=== PATIENT | male | born 1975 | race Caucasian/White ===

== ENCOUNTER 2019-04-19 06:26 | Emergency (ER) | payer OTHER ==
[~2019-04-19] VITALS: Ht 180.3 cm; Wt 118.2 kg
[2019-04-19 06:31] VITALS: Ht 180.3 cm; Wt 118.2 kg
[2019-04-19] MEDS ORDERED: ADVIL200 MG PO (06:34)
[2019-04-19] MEDS ORDERED: DICLOFENAC SODI50 MG PO (06:58)
[2019-04-19 07:42] VITALS: BP 137/92
== END 2019-04-19 07:35 | disposition home or self-care (01) ==
LOC: D.ER 06:26 → EDBD 06:26 → D.ER 07:35
DX: M54.5 Low back pain (principal)

== ENCOUNTER 2019-04-28 08:15 | Day surgery (SDC) | payer OTHER ==
[~2019-04-28] VITALS: Ht 180.3 cm; Wt 117.9 kg
--- NOTE | ~2019-04-28 | OP ---
PATIENT NAME: ALEXEY KRAMER MEDICAL RECORD: [id number] :79 LOCATION:[facility] ADMISSION DATE: SURGEON: LYRIC DÍAZ MD DATE OF OPERATION: 04/28/2019 PREOPERATIVE DIAGNOSES: Disc herniation and lumbar spinal stenosis at L2-L3 on the left with foraminal stenosis. POSTOPERATIVE DIAGNOSES: Disc herniation and lumbar spinal stenosis at L2-L3 on the left with foraminal stenosis. PROCEDURES: Lumbar laminotomy, medial facetectomy and foraminotomy with METRx retractor and discectomy on the left at L2-L3. SURGEON: Lyric Díaz MD DESCRIPTION AND TECHNIQUE: After induction of general endotracheal anesthesia, the patient was rolled prone on a Davin frame. Lumbar spine was prepped and draped in usual sterile fashion. Fluoroscopic x-ray and spinal needle localized the L2-L3 interspace on the left side. A series of dilators was used to advance a METRx retractor at the L2-L3 interspace on the left side. The level was confirmed with fluoroscopic x-ray. A microscope and Midas Dawson drill were used to perform laminotomy, medial facetectomy, and foraminotomy at L2-L3 on the left. Hypertrophied ligamentum flavum was removed with Cloward rongeurs. Following this, the L2 and L3 nerve roots were identified. There was an obvious free fragment disc herniation within the spinal canal within the axilla of the 2 nerve root. This was removed in a piecemeal fashion with pituitary rongeurs. Additional disc material was removed from the disc space. Following this, the L2 and L3 nerve roots were decompressed well. Meticulous hemostasis was maintained throughout the wound. The wound was irrigated with copious amounts of Ancef irrigant solution. The fascia was closed with 2-0 Vicryl suture, the subdermal layer was closed with 3-0 Vicryl suture. The skin was reapproximated with piedad. A sterile dressing was applied to the wound. The patient was awakened in good condition, taken to recovery. All counts were reported as correct. Estimated blood loss was minimal. TRANSINT:[id number] Voice Confirmation ID: [id number] DOCUMENT ID: [id number] LYRIC DÍAZ MD CC: [id number] DICTATION DATE: 05/02/19 0948 GANTRY RIGGER: 05/02/19 1050 [facility] 04/28/[address] [facility] [address] [place] [address]
[~2019-04-28 08:15] MED LIST: ADVIL200 MG PO; BACLOFEN20 M1 PO; DICLOFENAC SODI50 MG PO; HYDROCODON-ACE1 EA10 PO; LISINOPRIL20 MG PO; NEURONTIN 300300 MG PO; ZANAFLEX2 M1 PO
[2019-04-28 08:45] LABS: HEMATOCRIT 46.3 % (42.0-54.0); HEMOGLOBIN 16.3 g/dL (13.5-17.5); MCH 32.7 pg (26.0-34.0); MCHC 35.2 g/dL (31.0-37.0); MEAN PLATELET VOLUME 9.4 fL (7.4-10.4); RBC 4.98 10x6/uL (4.20-6.10); RDW 13.5 % (11.5-14.5); WBC 15.5 10x3/uL (4.8-10.8)
[2019-04-28 09:56] VITALS: BP 141/87; Ht 180.3 cm; Wt 117.9 kg
--- NOTE | 2019-04-28 17:13 | NUR ---
NOEL FRAME USED FOR POSITIONING
== END 2019-04-28 19:50 | disposition home or self-care (01) ==
LOC: D.PAN 08:15 → D.OPS 11:45 → D.PAN 19:50
PROVIDERS: Anesthesiology; ATTEND Neurological Surgery
DX: M51.26 Other intervertebral disc displacement, lumbar region (principal); M48.061 Spinal stenosis, lumbar region without neurogenic claudication

== ENCOUNTER 2019-05-26 07:22 | Day surgery (SDC) | payer OTHER ==
[2019-05-25 08:23] LABS: HEMOGLOBIN 13.2 g/dL (13.5-17.5); MCH 32.1 pg (26.0-34.0); MCHC 34.7 g/dL (31.0-37.0); MCV 92.5 fL (80.0-100.0); MEAN PLATELET VOLUME 8.7 fL (7.4-10.4); RBC 4.11 10x6/uL (4.20-6.10); RDW 13.1 % (11.5-14.5); WBC 7.2 10x3/uL (4.8-10.8)
[~2019-05-26] VITALS: Ht 180.3 cm; Wt 123.6 kg
[~2019-05-26 07:22] MED LIST changes: +CELEXA10 MG PO
[2019-05-26 07:54] VITALS: BP 126/81; BMI 35.2
[2019-05-26] MEDS ORDERED: PERCOCET 10-321 EAC1 PO (10:47)
--- NOTE | 2019-05-26 11:01 | NUR ---
LACK OF STRENGHT IN LEFT LOWER LEG
--- NOTE | 2019-05-26 14:01 | OP ---
PATIENT NAME: ALEXEY KRAMER MEDICAL RECORD: [id number] :79 LOCATION:D.OPS ADMISSION DATE: SURGEON: LYRIC DÍAZ MD DATE OF OPERATION: 05/26/2019 DATE OF SERVICE: 05/26/2019 PREOPERATIVE DIAGNOSIS: Recurrent disc herniation L2-L3, left. POSTOPERATIVE DIAGNOSIS: Recurrent disc herniation L2-L3, left. PROCEDURE: Redo lumbar laminotomy, medial facetectomy and foraminotomy with discectomy L2-L3, left. SURGEON: Lyric Díaz MD DESCRIPTION AND TECHNIQUE: After induction of general endotracheal anesthesia, the patient was rolled prone on a Davin frame. Lumbar spine was prepped and draped in usual sterile fashion. After sterile prep and drape, the previous incision was incised with a #11 blade. A series of dilators was used to advance a METRx retractor to the L2-L3 interspace on the left side. Level was confirmed with fluoroscopic x-ray. Microscope was brought into the field. Under microscopic illumination, the previous laminotomy was identified and extended with the Midas-Dawson drill. Hypertrophied ligamentum flavum was removed superior and caudal to the previous dural exposure. The disc space was identified. The spinal canal was swept with a Mill[place]ore elevator. Upon accomplishing this, there appeared to be recurrent disc herniation, which was ventral to the thecal sac. This was removed by grasping the lateral edge of the recurrent disc herniation with a patellar pituitary rongeurs. This was gently retracted laterally. It was a large disc herniation, approximately a centimeter and a half long, 0.5 cm in diameter. Upon removing this, there was brisk egress of CSF from the ventral dura. There was a single nerve root, which protruded from that to the lateral edge. This nerve root was carefully placed in the ventral dura and under microscope illumination the Duragen patch was placed over the area. There were no additional disc fragments from within the canal. There was no CSF leak upon conclusion of the procedure. Meticulous hemostasis was maintained within the wound. Wound was irrigated with copious amounts of Ancef irrigant solution. The retractor was removed. The fascia was closed with 2-0 Vicryl suture. Subdermal layer was closed with 3-0 Vicryl suture. The skin was closed with piedad. A sterile dressing was applied to the wound. The patient was awakened in good condition, taken to recovery. All counts were reported as correct. Estimated blood loss was minimal. TRANSINT:[id number] Voice Confirmation ID: [id number] DOCUMENT ID: [id number] LYRIC DÍAZ MD at 1401 CC: [id number] DICTATION DATE: 05/26/19 1311 OPTICS ENGINEER: 05/26/19 1334 [id number] [place] [address]
[2019-05-26 15:25] VITALS: BP 144/72
--- NOTE | 2019-05-26 15:25 | NUR ---
REC'D TO ROOM 2233 AWAKE AND ALERT. RESP EVEN AND UNLABORED WITH NO DISTRESS NOTED. CAN EXPRESS NEEDS AND WANTS. C/O LEG PAIN RATING 9/10 ON PAIN SCALE WAS MEDICATED WITH DIL BEFORE LEAVING RECOVERY NEXT PAIN MEDICATION DUE AT 1700. DRESSING INTACT TO MIDDLE/LOWER BACK. AND C/L IN REACH AT BEDSIDE.
--- NOTE | 2019-05-26 16:44 | NUR ---
1400 DR DÍAZ AT BEDSIDE. TO ADMIT PT FOR OBSERVATION AND RX WITH MS AND NEURONTIN WHEN C/O PAIN. SLEEPING ON RIGHT SIDE
[2019-05-26 17:40] VITALS: BP 144/72; Ht 180.3 cm; Wt 123.6 kg
[2019-05-26 19:55] VITALS: BP 113/68
--- NOTE | 2019-05-26 21:10 | NUR ---
LYING QUEITLY WITH NO DISTRESS NOTED. RESP UNLABORED. DRESSING TO LUMBAR BACK INTACT WITHOUT DRAINAGE NOTED. CL IN REACH AT BEDSIDE.
[2019-05-27] VITALS: BP 119/58
--- NOTE | 2019-05-27 02:02 | NUR ---
I have reviewed this patient and I concur with the Shift Assessment completed by the Licensed Practical Nurse today this shift.
[2019-05-27 04:00] VITALS: BP 116/60
--- NOTE | 2019-05-27 07:40 | NUR ---
ALERT AND ORIENTED. C/O PAIN, GAVE MORPHINE FOR PAIN. NO S/S OF ACUTE DISTRESS NOTED. POD #1 LAMINECTOMY, DRESSING C/D/I. PT ON BEDREST, NOT COMPLYING. PT FREQUENTLY SITS UP ON THE SIDE OF THE BED. IV TO LEFT HAND, SL. SITE PATENT WITHOUT REDNESS OR SWELLING. PT DENIES ANY NEEDS. AT BEDSIDE. CALL LIGHT IN REACH. WILL CONTINUE TO MONITOR.
[2019-05-27 08:30] VITALS: BP 107/63
[2019-05-27 12:47] VITALS: BP 118/69
--- NOTE | 2019-05-27 13:02 | NUR ---
I have reviewed this patient and I concur with the Shift Assessment completed by the Licensed Practical Nurse today this shift.
[2019-05-27 16:51] VITALS: BP 118/20
[2019-05-27 20:00] VITALS: BP 111/63
[2019-05-28] VITALS: BP 114/68
--- NOTE | 2019-05-28 01:27 | NUR ---
ALERT RESTING IN BED, REQUESTING PEROCET FOR PAIN, STATES I HAVE BEEN ALTERNATING PEROCET AND MORPHINE. DRESSING TO LOWER BACK REPLACED DUE TO ROLLED UP ABDIFATAH INTACT NO DRAINAGE NOTED, DENIES HEADACHE, SEE SHIFT ASSESSMENT, CALL LIGHT IN REACH
[2019-05-28 04:00] VITALS: BP 127/70
--- NOTE | 2019-05-28 07:30 | NUR ---
ALERT AND ORIENTED. AT BEDSIDE. NO C/O PAIN. NO S/S OF ACUTE DISTRESS NOTED. IV TO LEFT HAND, SL. SITE PATENT WITHOUT REDNESS OR SWELLING. POD #2 LAMINECTOMY, DRESSING C/D/I. LEFT FOOT DROP. UP WITH WALKER. PT DENIES ANY NEEDS. CALL LIGHT IN REACH. WILL CONTINUE TO MONITOR.
[2019-05-28 09:35] VITALS: BP 136/82
--- NOTE | 2019-05-28 11:46 | NUR ---
PT IV INFILTRATED, DISCONTINUED IV CATHETER TIP INTACT. RESITED IV TO RIGHT WRIST, 22 GA X1 TRY. IV SL.
--- NOTE | 2019-05-28 12:36 | NUR ---
I have reviewed this patient and I concur with the Shift Assessment completed by the Licensed Practical Nurse today this shift.
[2019-05-28 13:16] VITALS: BP 155/92
[2019-05-28 17:16] VITALS: BP 128/91
--- NOTE | 2019-05-28 18:27 | NUR ---
ALERT AND ORIENTED, SITTING UP ON THE SIDE OF THE BED. C/O PAIN, GAVE MORPHINE FOR PAIN. NO S/S OF ACUTE DISTRESS NOTED. CALL LIGHT IN REACH. WILL CONTINUE TO MONITOR.
[2019-05-28 20:00] VITALS: BP 129/60
--- NOTE | 2019-05-28 20:00 | NUR ---
ALERT RESTING IN BED, REQUESTING MORPHINE FOR PAIN RATED 7, GIVEN ORDERED, REQESTING TIMES THAT HE CAN HAVE MORPHINE AND PEROCET BE WRITTEN ON BOARD SO HE AND CAN KEEP UP WITH WHEN HE CAN HAVE IT, DONE REQUESTED. SEE SHIFT ASSESSMENT CALL LIGHT IN REACH
[2019-05-29] VITALS: BP 119/74
[2019-05-29 04:00] VITALS: BP 132/78
--- NOTE | 2019-05-29 07:50 | NUR ---
ALERT AND ORIENTED, WATCHING TELEVISION. POD #3 LAMINECTOMY, DRESSING C/D/I. LEFT FOOT DROP. UP WITH WALKER. IV TO RIGHT WRIST, SL. SITE PATENT WITHOUT REDNESS OR SWELLING. C/O PAIN, GAVE MORPHINE. NO S/S OF ACUTE DISTRESS NOTED. PT DENIES ANY NEEDS. CALL LIGHT IN REACH. WILL CONTINUE TO MONITOR.
[2019-05-29 08:07] VITALS: BP 139/81
[2019-05-29 14:01] VITALS: BP 137/73
--- NOTE | 2019-05-29 16:45 | NUR ---
I have reviewed this patient and I concur with the Shift Assessment completed by the Licensed Practical Nurse today this shift.
[2019-05-29 17:28] VITALS: BP 119/77
[2019-05-29 20:00] VITALS: BP 134/83
[2019-05-30] VITALS: BP 138/81
[2019-05-30 04:00] VITALS: BP 118/80
[2019-05-30] MEDS ORDERED: NEURONTIN800 MG PO (05:47)
[2019-05-30] MEDS ORDERED: PERCOCET 10-321 EAC1 PO ×2 (05:52→16:41)
[2019-05-30] MEDS ORDERED: COLACE100 MG PO (05:52)
[2019-05-30] MEDS ORDERED: Ambien PO (05:52)
[2019-05-30] MEDS ORDERED: Chloraseptic Spray [ TOPICAL (05:52)
[2019-05-30] MEDS ORDERED: NEURONTIN 400400 MG PO (05:52)
--- NOTE | 2019-05-30 07:37 | NUR ---
PT IS RESTING IN BED WITH EYES OPEN. RESPIRATIONS ARE EVEN AND UNLABORED. PT IS AT BEDSIDE. PT REPORTS SLIGHT PAIN TO LEFT CALF AND PAIN WITH AMBULATION. WALKER IS IN ROOM WITHIN PT REACH. LEFT FOOT DROP NOTED. PT IS UNABLE TO MOVE LEFT FOOT. LEFT FOOT IS COLD. PT REPORTS THAT HIS FEET ARE ALWAYS COLD. PEDAL PULSES ARE PALP. CAP REFILL <3 SEC. PT DENIES NEEDS. PT DENIES PRESENCE OF N/V. PT DENIES FUTHER NEEDS. BED IS IN THE LOWEST POSITION. CALL LIGHT AND BEDSIDE TABLE ARE WITHIN REACH. SIDE RAILS X 2. WILL CONT TO MONITOR.
[2019-05-30 08:34] VITALS: BP 136/92
[2019-05-30 13:48] VITALS: BP 116/78
--- NOTE | 2019-05-30 16:02 | NUR ---
PT REQUESTING WRITTEN RX WITH DR DÍAZ SIGNAUTRE FOR CANE AND SHOWER CHAIR. MESSAGE LEFT WITH AJ AT DR DÍAZ OFFICE.
--- NOTE | 2019-05-30 17:00 | NUR ---
PT WITH FOOT DROP BOOT ON. DISCAHRGE INSTRUCTIONS COVERED WITH PT AND PT . ALL QUESTIONS ANSWERED. PRINTED RX GIVEN TO PT. DISCHARGE PAPERS GIVEN TO PT. PIV REMOVED FROM RIGHT HAND WITH CATHETER TIP INTACT. DRESSING APPLIED. ALL DISCHARGE PAPERS SIGNED. PT AND PT DENY FURTHER QUESTIONS/CONCERNS AT THIS TIME.
[2019-05-30 17:18] VITALS: BP 165/94
--- NOTE | 2019-05-30 17:23 | NUR ---
PT TRANSPORTED OUT OF ROOM VIA WHEELCHAIR.
== END 2019-05-30 17:32 | disposition home or self-care (01) ==
LOC: D.OPS 07:22 → D.MS 07:22 → D.OPS 09:30 → D.PAN 09:30 → D.MS 15:11 → D.OPS 05-30 17:32
PROVIDERS: Anesthesiology; ATTEND Neurological Surgery
DX: M51.26 Other intervertebral disc displacement, lumbar region (principal)

== ENCOUNTER 2020-03-06 10:28 | Inpatient (IN) | payer OTHER ==
[~2020-03-06] VITALS: Ht 180.3 cm; Wt 121.0 kg
[~2020-03-06 10:28] MED LIST changes: +Ambien PO; +COLACE100 MG PO; +Chloraseptic Spray [ TOPICAL; +NEURONTIN 400400 MG PO; +NEURONTIN800 MG PO; +PERCOCET 10-321 EAC1 PO
[2020-03-06 12:05] LABS: BASOPHILS 0.4 % (0-2); EOSINOPHILS 1.3 % (0-7); HEMATOCRIT 45.3 % (42.0-54.0); HEMOGLOBIN 15.5 g/dL (13.5-17.5); IMMATURE GRANULOCYTES 0.2 % (0-5); LYMPHOCYTES 17.2 % (15-50); MCH 31.7 pg (26.0-34.0); MCHC 34.2 g/dL (31.0-37.0); MCV 92.6 fL (80.0-100.0); MEAN PLATELET VOLUME 9.5 fL (7.4-10.4); MONOCYTES 6.6 % (2-11); NEUTROPHILS 74.3 % (40-80); RBC 4.89 10x6/uL (4.20-6.10); RDW 12.9 % (11.5-14.5); WBC 9.5 10x3/uL (4.8-10.8)
[2020-03-06 12:13] LABS: CALCIUM 9.1 mg/dL (8.5-10.1); CARBON DIOXIDE 30.9 mmol/L (21.0-32.0); CREATININE - SERUM 1.2 mg/dL (0.6-1.3); POTASSIUM - SERUM 3.9 mmol/L (3.5-5.1)
[2020-03-06 12:14] VITALS: BP 146/88
[2020-03-06 12:15] LABS: PLATELET COUNT 198 10x3/uL (130-400)
[2020-03-06 12:19] LABS: ALBUMIN 3.8 g/dL (3.4-5.0); BILIRUBIN - TOTAL 0.78 mg/dL (0.2-1.3); PROTEIN - SERUM 6.8 g/dL (6.4-8.2)
[2020-03-06 16:45] VITALS: BP 135/89
--- NOTE | 2020-03-06 18:51 | NUR ---
RESTING IN BED WITH EYES OPEN. NO C/O PAIN. NO S/S OF ACUTE DISTRESS NOTED. DENIES ANY NEEDS AT THIS TIME. CALL LIGHT IN REACH. WILL CONTINUE TO MONITOR.
[2020-03-06 18:53] VITALS: BMI 37.0
[2020-03-06 20:57] VITALS: BP 143/79
[2020-03-07 01:00] VITALS: BP 128/77
[2020-03-07 06:17] LABS: BASOPHILS 0.4 % (0-2); EOSINOPHILS 1.5 % (0-7); HEMATOCRIT 45.9 % (42.0-54.0); HEMOGLOBIN 15.1 g/dL (13.5-17.5); IMMATURE GRANULOCYTES 0.2 % (0-5); LYMPHOCYTES 19.9 % (15-50); MCH 31.2 pg (26.0-34.0); MCHC 32.9 g/dL (31.0-37.0); MEAN PLATELET VOLUME 9.7 fL (7.4-10.4); MONOCYTES 6.2 % (2-11); NEUTROPHILS 71.8 % (40-80); PLATELET COUNT 214 10x3/uL (130-400); RBC 4.84 10x6/uL (4.20-6.10); RDW 13.1 % (11.5-14.5); WBC 10.8 10x3/uL (4.8-10.8)
[2020-03-07 06:23] LABS: MCV 94.8 fL (80.0-100.0)
[2020-03-07 06:30] VITALS: BP 127/73
[2020-03-07 06:40] LABS: ALBUMIN 3.3 g/dL (3.4-5.0); ALKALINE PHOSPHATASE 71 U/L (30-120); ALT (SGPT) 51 U/L (10-68); CALC OSMOLALITY 281 mosm/kg (275-300); CALCIUM 8.6 mg/dL (8.5-10.1); CARBON DIOXIDE 29.6 mmol/L (21.0-32.0); CHLORIDE - SERUM 106 mmol/L (98-107); CREATININE - SERUM 1.1 mg/dL (0.6-1.3); GLUCOSE 117 mg/dL (74-106); POTASSIUM - SERUM 4.1 mmol/L (3.5-5.1); PROTEIN - SERUM 6.2 g/dL (6.4-8.2); SODIUM 141 mmol/L (136-145); UREA NITROGEN 12 mg/dL (7-18); eGFR NON AFRICAN AMERICAN 78 mL/min (90-120)
--- NOTE | 2020-03-07 07:15 | NUR ---
ALERT AND ORIENTED. NO C/O PAIN. NO S/S OF ACUTE DISTRESS NOTED. IV TO LEFT HAND, NS INFUSING @ 100ML/HR. SITE PATENT WITHOUT REDNESS OR SWELLING. LEFT FOOT DROP. DENIES ANY NEEDS AT THIS TIME. CALL LIGHT IN REACH. WILL CONTINUE TO MONITOR.
[2020-03-07 08:45] VITALS: BP 125/59
--- NOTE | 2020-03-07 13:15 | NUR ---
I have reviewed this patient and I concur with the Shift Assessment completed by the Licensed Practical Nurse today this shift.
[2020-03-07 13:28] VITALS: BP 108/70
--- NOTE | 2020-03-07 19:22 | NUR ---
ALERT AND ORIENTED. GAVE BOLUS OF DILAUDID 0.4 MG. NO S/S OF ACUTE DISTRESS NOTED. AT BEDSIDE. DENIES ANY NEEDS AT THIS TIME. CALL LIGHT IN REACH. WILL CONTINUE TO MONITOR.
--- NOTE | 2020-03-07 20:00 | NUR ---
A&O X 4, SUPINE IN BED, AT BEDSIDE. AMBULATES INDEPENDENTLY. REPORTS PAIN OF 5-6/10 TO BACK. REMOVED FROM IV FOR SHOWER, CTM.
[2020-03-07 21:33] VITALS: BP 123/70
[2020-03-08] VITALS (7 sets, daily range): BP systolic 116–145; BP diastolic 58–89
--- NOTE | 2020-03-08 02:12 | NUR ---
I have reviewed this patient and I concur with the Shift Assessment completed by the Licensed Practical Nurse today this shift.
[2020-03-08 06:43] LABS: BASOPHILS 0.4 % (0-2); HEMATOCRIT 43.7 % (42.0-54.0); HEMOGLOBIN 14.2 g/dL (13.5-17.5); IMMATURE GRANULOCYTES 0.1 % (0-5); LYMPHOCYTES 28.5 % (15-50); MCH 31.2 pg (26.0-34.0); MCHC 32.5 g/dL (31.0-37.0); MEAN PLATELET VOLUME 9.5 fL (7.4-10.4); MONOCYTES 7.7 % (2-11); NEUTROPHILS 61.3 % (40-80); PLATELET COUNT 192 10x3/uL (130-400); RBC 4.55 10x6/uL (4.20-6.10); RDW 13.1 % (11.5-14.5); WBC 8.3 10x3/uL (4.8-10.8)
[2020-03-08 07:12] LABS: ALBUMIN 3.3 g/dL (3.4-5.0); ALKALINE PHOSPHATASE 72 U/L (30-120); ALT (SGPT) 51 U/L (10-68); BILIRUBIN - TOTAL 0.32 mg/dL (0.2-1.3); CALC OSMOLALITY 278 mosm/kg (275-300); CALCIUM 8.6 mg/dL (8.5-10.1); CARBON DIOXIDE 32.7 mmol/L (21.0-32.0); CHLORIDE - SERUM 105 mmol/L (98-107); CREATININE - SERUM 1.1 mg/dL (0.6-1.3); GLUCOSE 102 mg/dL (74-106); POTASSIUM - SERUM 4.1 mmol/L (3.5-5.1); PROTEIN - SERUM 6.2 g/dL (6.4-8.2); SODIUM 140 mmol/L (136-145); UREA NITROGEN 12 mg/dL (7-18); eGFR NON AFRICAN AMERICAN 78 mL/min (90-120)
--- NOTE | 2020-03-08 08:21 | NUR ---
HE IS ASKING FOR A BOLUS, NOT USE TILL 930. HE IS SLEEPY AND FORGETFUL. THE CALL LIGHT IS WITHIN REACH. HE IS USING THE CUSTOMER ENGAGEMENT ANALYST BUTTON.
--- NOTE | 2020-03-08 20:00 | NUR ---
PATIENT STANDING BEDSIDE WATCHING TV WITH FAMILY AT BEDSIDE. NO S/S OF ACUTE DISTRESS. PATIENT C/O 8/10 PAIN IN HIS LOWER BACK RADIATING TO LEG. PATIENT HAS DILAUDID HOSE STRIPPER. PATIENT HAS IV IN LEFT HAND, NORMAL SALINE @ 100 ML/HR. IV IS PATENT WITHOUT REDNESS, SWELLING, OR TENDERNESS. PATIENT IS UP ADLIB TO BATHROOM. PATIENT HAS SURGERY TOMORROW, CONSENTS ARE SIGNED. CALL LIGHT WITHIN REACH. WILL CONTINUE TO MONITOR.
[2020-03-09] VITALS (16 sets, daily range): BP systolic 112–154; BP diastolic 63–91
--- NOTE | 2020-03-09 03:56 | NUR ---
I have reviewed this patient and I concur with the Shift Assessment completed by the Licensed Practical Nurse today this shift.
--- NOTE | 2020-03-09 05:55 | NUR ---
PATIENT HAS BUMPED DECK WORKER MACHINE SO DECK WORKER HAS TO BE RESTARTED. PATIENT PUSHES BUTTON IMMEADITLY AFTER RESTARTING THE PUMP AND HAS DONE THIS EVERY TIME. PATIENT WAS INFORMED ABOUT EVERYTIME HE COULD HAVE A DECK WORKER BOLUS. PATIENT WAS TOLD HE COULD HAVE A BOLUS @ 0520 IN THE MORNING AND HIS FLEXERIL WAS GIVEN TO HELP AT THIS TIME. PATIENT CALLED DR. DÍAZ, WHO THEN CALLED ME TO TELL ME TO GIVE HIS "MEDICINE FOR THE BATHROOM". UPON ENTERING ROOM TO GIVE DOSE, PATIENT TOLD ME "YOU WILL HAVE TO WAIT. I AM IN THE BATHROOM." PATIENT PRESSED BUTTON AFTER GETTING DONE IN THE BATHROOM, AND BY THAT TIME IT WAS 0520. CALL LIGHT IN PLACE. WILL CONTINUE TO MONITOR.
--- NOTE | 2020-03-09 07:10 | NUR ---
TO OR VIA [employer].
[2020-03-09 08:08] LABS: ALBUMIN 3.5 g/dL (3.4-5.0); ALKALINE PHOSPHATASE 78 U/L (30-120); BILIRUBIN - TOTAL 0.39 mg/dL (0.2-1.3); CALC OSMOLALITY 278 mosm/kg (275-300); CALCIUM 8.7 mg/dL (8.5-10.1); CARBON DIOXIDE 30.5 mmol/L (21.0-32.0); CHLORIDE - SERUM 103 mmol/L (98-107); CREATININE - SERUM 1.1 mg/dL (0.6-1.3); GLUCOSE 103 mg/dL (74-106); POTASSIUM - SERUM 3.9 mmol/L (3.5-5.1); PROTEIN - SERUM 6.2 g/dL (6.4-8.2); SODIUM 140 mmol/L (136-145); UREA NITROGEN 12 mg/dL (7-18); eGFR NON AFRICAN AMERICAN 78 mL/min (90-120)
[2020-03-09 08:09] LABS: ALT (SGPT) 66 U/L (10-68)
[2020-03-09 08:12] LABS: BASOPHILS 0.6 % (0-2); EOSINOPHILS 2.8 % (0-7); HEMATOCRIT 43.4 % (42.0-54.0); HEMOGLOBIN 14.3 g/dL (13.5-17.5); IMMATURE GRANULOCYTES 0.1 % (0-5); LYMPHOCYTES 32.1 % (15-50); MCH 31.5 pg (26.0-34.0); MCHC 32.9 g/dL (31.0-37.0); MCV 95.6 fL (80.0-100.0); MEAN PLATELET VOLUME 9.9 fL (7.4-10.4); MONOCYTES 9.5 % (2-11); NEUTROPHILS 54.9 % (40-80); PLATELET COUNT 208 10x3/uL (130-400); RBC 4.54 10x6/uL (4.20-6.10); RDW 12.9 % (11.5-14.5)
--- NOTE | 2020-03-09 16:30 | NUR ---
REC'D PT IN CVICU. PT LOG ROLLED TO ASSESS INCISION SITE TO LOW BACK. INCISION CDI. PT C/O PAIN TO BACK. GREENHOUSE OR NURSERY TRANSPLANTER MS SET UP AND TAUGHT. ALL MONITORING EQUIPMENT ATTACHED AND ALARMS SET. AT BS.
--- NOTE | 2020-03-09 17:12 | NUR ---
PT C/O PAIN AND IS ASKING TO SIT UP IN BED. LOG ROLLED AND REPOSITIONED FOR COMFORT.
--- NOTE | 2020-03-09 17:36 | NUR ---
PT HAS REACHED 4HR LO AND C/O UNCONTROLLED BACK PAIN. CALLED DR DÍAZ AND REPORTED. REC'D NEW ORDERS.
--- NOTE | 2020-03-09 19:10 | NUR ---
PT IS RESTING IN BED WITH EYES CLOSED. AWAKES EAISLY AND QUICKLY. HE IS A&OX4. HE VOICES PAIN IS 8/10 ON NUMERIC SCALE IN "LOWER BACK, MAINLY ON THE RIGHT". HIS INTERIOR DECORATOR PUMP IS LOCKED OUT AT THIS TIME DUE TO USING MAXIMAL LIMIT IN HOUR HOURS. HIS VSS. POWERS CATHEOTR IS BELOW BLADDER AND DRAINING. IV IN LEFT HAND CDI, NO S/S OF INFILTRATION OR REDNESS. WILL PERFORM FULL ASSESSMENT AND DOC IN FLOW SHEET. BED IS LEFT LOW,SIDE RAISLX2,CALL LIGHT WITHIN REACH. WILL CONTINUE TO [facility]
--- NOTE | 2020-03-09 19:45 | NUR ---
PT CONITNUES TO VOICES PAIN IS 8/10 NUMERIC SCALE IN LOWER BACK. HE IS LOCKED OUT OF MOLD SHEET CLEANER DUE TO MAXIMAL DOSE LIMIT. WILL GIVE MOLD SHEET CLEANER BOLUS OF 2MG THAT IS ORDERED PRN EVERY 3 HOURS. VSS. RESPOTIONED FOR COMFORT. BED IS LOW,SIDE RAILSX2,CALL LIGHT WTIHIN REACH. WILL CONITNUE TO MONITOR
--- NOTE | 2020-03-09 20:20 | NUR ---
PT USES CALL LIGHT AGAIN TO VOICE"I AM HURTING SO BAD". PAIN IS 8/10 ON NUMERIC SCALE IN LOWER BACK EVEN AFTER A PROCUREMENT COORDINATOR BOLUS PROVIDED AT 1945. HIS PROCUREMENT COORDINATOR PUMP IS LOCKED OUT AT THIS TIME FOR MAXING IT OUT. HIS VSS. I WILL INFORM OF UNCONTROLLED PAIN.
--- NOTE | 2020-03-09 20:31 | NUR ---
TALKED WITH ON THE PHONE. NEW T.O TO CHANGE BLANKET CUTTING MACHINE OPERATOR MORPHINE TO 3MG Q6M WITH 20MG FOUR HOUR LOCK OUT. ALSO TO ADD DECADRONE IV 6MG IV Q6 HOURS, AND TO GIVE 10MG IV DECADRONE NOW ONE TIME. T.O READ BACK CORRECT
--- NOTE | 2020-03-09 21:45 | NUR ---
PT CONTINUES TO USE CALL LIGHT VOICES"I DONT KNOW WHAT TO DO BUT I AM HURTING SO BAD". VOICES PAIN 7/10 NUMERIC SCALE IN HIS LOWER BACK, MAINLY ON THE RIGHT SIDE. HE HAS SENIOR PRICING ANALYST PUMP MAXED OUT AT THIS TIME. HE IS VERY ANXIOUS AND IRRITABLE. I ASK HIM IF HE TAKES ANTI-ANXIETY MEDICINE AT HOME. HE VOICES"YES I DO, EVERY DAY". WILL ADMINISTER AMBIAN THAT IS PRN AND HYDROCODONE PRN ORDERED. VITAL SIGNS ARE STABLE. PT IS A&OX4. REPOSITONED FOR COMFORT BY TILTING BED SLIGHTLY TO THE LEFT. PT VOICES"I THINK THAT HELPS". BED WAS LEFT LOW,SIDE RAISLX2,CALL LIGHT WITHN REACH. WILL CONITNUE TO MONITOR
--- NOTE | 2020-03-09 22:41 | NUR ---
PT USED CALL LIGTH AND ASKED "CAN I PLEASE BE MOVED". GOT ASSISTANCE TO LOG ROLL AND TO PULL TO HEAD OF BED. PT VOICED"THATS BETTER I THINK". VSS. BED IS LOW,SIDE RAISLX2,CALL LIGHT WITHIN REACH. WILL CONINTUE TO [facility]
[2020-03-10] VITALS (20 sets, daily range): BP systolic 132–165; BP diastolic 62–90; Ht 180.3 cm; Wt 121.0 kg
--- NOTE | 2020-03-10 00:26 | NUR ---
pt finally seems to be resting and more comfortable. he has been resting with eyes closed and not used call light within a couple hours now. vss. bed is low,side raislx2,call light wtihin reach. will conintue to monitor
--- NOTE | 2020-03-10 03:00 | NUR ---
PERFORMED RE-ASSESSMNET AT THIS TIME WILL DOC IN FLOW SHEET. PT IS RESTING. VSS. BED IS LOW,SIDE RAISLX2,CALL LIGHT WITHIN REACH. WILL CONITNUE TO MONITOR
--- NOTE | 2020-03-10 05:02 | NUR ---
PT IS SITTING UP IN BED A&OX4, HE HAS BEEN USING HIS BED REMOTE TO HELP REPOSITON BED FOR COMFORT. VSS. HE VOICES NO NEEDS AT THIS TIME. BED IS LOW,SIDE RAISLX2,CALL LIGHT WITHIN REACH. WILL CONITNUE TO MONITOR
[2020-03-10 05:57] LABS: BASOPHILS 0.1 % (0-2); EOSINOPHILS 0 % (0-7); HEMOGLOBIN 14.6 g/dL (13.5-17.5); IMMATURE GRANULOCYTES 0.3 % (0-5); MCH 30.8 pg (26.0-34.0); MCHC 32.4 g/dL (31.0-37.0); MCV 94.9 fL (80.0-100.0); MEAN PLATELET VOLUME 9.7 fL (7.4-10.4); MONOCYTES 3.7 % (2-11); NEUTROPHILS 91.9 % (40-80); PLATELET COUNT 222 10x3/uL (130-400); RBC 4.74 10x6/uL (4.20-6.10); RDW 13.2 % (11.5-14.5)
[2020-03-10 06:00] LABS: WBC 16.8 10x3/uL (4.8-10.8)
[2020-03-10 06:12] LABS: ALBUMIN 3.6 g/dL (3.4-5.0); ANION GAP 13.6 mmol/L (8-16); BILIRUBIN - TOTAL 0.39 mg/dL (0.2-1.3); CALCIUM 8.8 mg/dL (8.5-10.1); CARBON DIOXIDE 27.3 mmol/L (21.0-32.0); POTASSIUM - SERUM 3.9 mmol/L (3.5-5.1)
[2020-03-10 06:13] LABS: CREATININE - SERUM 1.4 mg/dL (0.6-1.3)
--- NOTE | 2020-03-10 06:34 | NUR ---
PT IS RESTING IN BED A&OX4. SITTING UP IN BED WITH HOB 40 DEGREES FOR COMFORT. VSS. NO NEEDS OR COMPLAINTS AT THIS TIME. BED IS LOW,SIDE RAISLX2,CALL LIGHT WITHIN [facility]. WILL CONITNUE TO [facility]
--- NOTE | 2020-03-10 08:03 | NUR ---
PT OOB TO CHAIR. BREAKFAST TRAY SERVED AND PT EATING WITH OUT DIFFICULTY. PT REPORTS BETTER PAIN CONTROL WITH SITTING UP IN CHAIR.
--- NOTE | 2020-03-10 10:16 | NUR ---
assist pt with repositioning in chair. POLICY CHECKER LOCKED OUT. PT C/O PAIN. NORCO GIVEN.
--- NOTE | 2020-03-10 12:38 | NUR ---
DR DÍAZ HERE ON ROUNDS. LESLIE HERE THIS AM AND FIT PT FOR BRACE. INST PT TO USE CALL LIGHT TO GET OOB.
--- NOTE | 2020-03-10 14:29 | NUR ---
PT FELECIAAL DONE AND PT EVELYN CAR WITH BRACE ON AND W/WALKER.
--- NOTE | 2020-03-10 15:18 | NUR ---
PT AMB ENTIRE LENGTH OF CAR WITH THIS RN AND SELVIN W/BRACE ON. PT PAUL WELL.
--- NOTE | 2020-03-10 15:30 | NUR ---
FC JARED. PT VOIDS WITH OUT PROBLEMS.
--- NOTE | 2020-03-10 18:38 | NUR ---
IV TO L HAND TENDER TO TOUCH. DCD IV AND RESITE 20G TO RT FA X 1 STICK. PT PAUL WELL.
--- NOTE | 2020-03-10 19:00 | NUR ---
PT IS LAYING IN BED ON RIGHT SIDE A&OX4. WHEN ASKED IF HE HAD A BETTER DAY HE VOICED"O YEA, MUCH BETTER SINCE I WAS ABLE TO MOVE AROUND MORE". HE VOICES PAIN "5/10" ON NUMERIC SCALE WHICH IS BETTER THATN LAST NIGHT OF NOT GETTING BELOW A 7/10. HE SEEMS TO BE IN MUCH BETTER SPIRITS THAN LAST NIGHT. HIS VSS. I STOOD BY ASSIST FOR HIM TO GET UP TO USE THE BATHROOM. HE VOIDED LARGE AMOUNT AND WALKED SAFELY BACK TO BED. HIS BALANCE IS GOOD. HE NOW IS LAYING ON HIS LEFT SIDE AND SAID"IM GOING TO WATCH A MOVIE". I WILL PERFORM FULL ASSESMENT AND DOC IN FLOW SHEET. IV IS OBSERVED IN RIGHT WRIST C NO S/S OF INFILTRATION OR REDNESS. BED IS LEFT LOW, INSTRUCTIONAL TECHNOLOGY DIRECTOR BUTTON WITHIN REACH. CALL LIGHT WTIHIN REACH. SIDE RAISSX2,WILL CONINTUE TO [facility].
--- NOTE | 2020-03-10 20:13 | NUR ---
WHILE ADMINSNITERING [facility]. PT ASKED "CAN I GO AHEAD AND HAVE MY AMBIAN, I THANK I WANT TO TYR TO GO TO SLEEP EARLY SINCE I DIDNT GET MUCH LAST NIHGT". WILL DOC AND ADMINSITER AMBIAN PO ORDERED PRN AT BEDTIME. VSS. PT MOVED INDEPENDENTLY. BED IS LOW,SIDE RAISLX2,CALL LIGHT AND IMAGING SCHEDULER BUTTON WITHIN REACH.
--- NOTE | 2020-03-10 21:57 | NUR ---
PT USED CALL LIGHT AND VOICED"I NEED TO GO TO THE BR". STAND BY ASSIST WHILE HE USED WALKER TO GO TO BR. HE VOIDED LARE AMOUNT YELLOW URINE. BACK TO CHAIR REQUESTED. GOT HIM ALL SET UP WITH HIS BEDSIDE TABLE AND HIS IPAD HE HAS FOR WATCHING MOVIES. HIS SENIOR ESCROW OFFICER PUMP AND CALL LIGHT ARE WITHIN REACH. HE SAID "ILL CALL YOU WHEN IM READY TO GO BACK TO BED".
--- NOTE | 2020-03-10 23:10 | NUR ---
PT IS RESTING IN BED ON STOMACH. VSS. WILL PERFORM RE-ASSESSMENT AND DOC IN FLOW SHEET. NO NEEDS VERBALIZED. BED IS LOW,SIDE RAISLX2,CALL LGIHT WTIHIN REACH. OCEAN RESCUE LIEUTENANT BUTTON WITHIN REACH. WILL CONITNUE TO MONITOR
[2020-03-11] VITALS (12 sets, daily range): BP systolic 137–165; BP diastolic 77–96
--- NOTE | 2020-03-11 02:02 | NUR ---
PT USED CALL LIGHT AND AKSED"CAN I GO AHEAD AND HAVE A PAIN PILL SINCE IM LOCKED OUT OF MY [employer] OFFICER AT THIS TIME". PT VOICES PAIN "7/10" ON NUMERIC SCALE. WILL SCAN AND DOC ON DEC. NO OTHER REQUEST VOICED. PT MOVES INDEPENDENTLY. VSS. BED IS LOW,SIDE RAISLX2,CALL LIGHT AND [employer] OFFICER BUTTON WITHIN REACH.
--- NOTE | 2020-03-11 04:03 | NUR ---
PT IS RESTING IN BED ON LEFT SIDE WITH EYES CLOSED SNORING. VSS. BED IS LOW,SIDE RAILSX2,CALLLIGHT WITHIN REACH. WILL CONTINUE TO MONITOR
--- NOTE | 2020-03-11 05:26 | NUR ---
PT REQUESTED"CAN WE WALK DOWN THE CAR?". HE INDEPENDENTLY PUT ON BACK BRACE PROVIDED BY LESLIE BRACE AND LIMB AND USED HIS WALKER TO WALK DOWN [facility] CAR AND BACK TO HIS ROOM WITH ME A STAND BY ASSIT. HIS BALANCE IS GOOD AND HE STATES"MOVING MAKES MY PAIN BETTER". ONCE BACK TO ROOM, I HOOKED HIM BACK UP TO THE MONITORS AND HE REPOSITONED HIMSELF COMFORTABLE IN BED. VSS. NO OTHER NEEDS OR C/O VOICED. BED IS LOW,SIDE RAISLX2, LINING IRONER BUTTON AND CALL LIGHT WITHIN REACH WITHIN REACH. WILL CONTINUE TO MONITOR
--- NOTE | 2020-03-11 06:07 | NUR ---
PT IS RESTING IN BED. VSS. HE HAD ASKED BEFORE IF HE "CAN I HAVE MY PAIN PILL WHEN IT IS DUE AGAIN, SO I CAN STAY ON TOP OF MY PAIN CONTROL". I TOLD HIM IT WAS DUE AGAIN AT 0602. HE VOICED"OK, YES BRING IT TO ME". SCANNED AND DOCUMENTED ON DEC. NO OTHER NEEDS VOICED. BED IS LOW,SIDE RAISLX2,CALL LIGHT WITHIN REACH.
[2020-03-11 06:23] LABS: BASOPHILS 0 % (0-2); EOSINOPHILS 0 % (0-7); HEMATOCRIT 40.6 % (42.0-54.0); HEMOGLOBIN 13.1 g/dL (13.5-17.5); IMMATURE GRANULOCYTES 0.2 % (0-5); LYMPHOCYTES 6.2 % (15-50); MCH 30.8 pg (26.0-34.0); MCHC 32.3 g/dL (31.0-37.0); MCV 95.5 fL (80.0-100.0); MEAN PLATELET VOLUME 9.9 fL (7.4-10.4); MONOCYTES 7.3 % (2-11); NEUTROPHILS 86.3 % (40-80); PLATELET COUNT 229 10x3/uL (130-400); RBC 4.25 10x6/uL (4.20-6.10); RDW 13.2 % (11.5-14.5); WBC 17.5 10x3/uL (4.8-10.8)
[2020-03-11 06:52] LABS: ALKALINE PHOSPHATASE 66 U/L (30-120); ALT (SGPT) 72 U/L (10-68); BILIRUBIN - TOTAL 0.33 mg/dL (0.2-1.3); CALC OSMOLALITY 284 mosm/kg (275-300); CALCIUM 8.2 mg/dL (8.5-10.1); CARBON DIOXIDE 29.6 mmol/L (21.0-32.0); CHLORIDE - SERUM 105 mmol/L (98-107); CREATININE - SERUM 0.9 mg/dL (0.6-1.3); GLUCOSE 145 mg/dL (74-106); SODIUM 140 mmol/L (136-145); UREA NITROGEN 20 mg/dL (7-18); eGFR NON AFRICAN AMERICAN > 90 mL/min (90-120)
--- NOTE | 2020-03-11 07:24 | NUR ---
PT AWAKE AND ALERT, PT REPORTS PAIN WELL CONTROLLED WITH PO PAIN MEDS. USING AUDIO ENGINEER VERY LITTLE DURING HS.
--- NOTE | 2020-03-11 17:08 | NUR ---
PATIENT SITTING UP IN BED WITH NO COMPLAINTS OR SIGNS OF DISTRESS. IV INTACT. DRESSING INTACT. CALL LIGHT WITHIN REACH.
[2020-03-12 00:21] VITALS: BP 154/85
[2020-03-12 05:15] LABS: BASOPHILS 0 % (0-2); EOSINOPHILS 0 % (0-7); HEMATOCRIT 41.7 % (42.0-54.0); HEMOGLOBIN 13.7 g/dL (13.5-17.5); IMMATURE GRANULOCYTES 0.3 % (0-5); LYMPHOCYTES 7.8 % (15-50); MCHC 32.9 g/dL (31.0-37.0); MCV 94.3 fL (80.0-100.0); MEAN PLATELET VOLUME 9.6 fL (7.4-10.4); MONOCYTES 7.2 % (2-11); NEUTROPHILS 84.7 % (40-80); PLATELET COUNT 232 10x3/uL (130-400); RBC 4.42 10x6/uL (4.20-6.10); RDW 12.9 % (11.5-14.5); WBC 13.6 10x3/uL (4.8-10.8)
[2020-03-12 05:29] LABS: ALBUMIN 3.2 g/dL (3.4-5.0); ALKALINE PHOSPHATASE 66 U/L (30-120); ALT (SGPT) 68 U/L (10-68); BILIRUBIN - TOTAL 0.44 mg/dL (0.2-1.3); CALC OSMOLALITY 282 mosm/kg (275-300); CALCIUM 8.8 mg/dL (8.5-10.1); CARBON DIOXIDE 30.7 mmol/L (21.0-32.0); CHLORIDE - SERUM 103 mmol/L (98-107); GLUCOSE 164 mg/dL (74-106); POTASSIUM - SERUM 4.2 mmol/L (3.5-5.1); PROTEIN - SERUM 6.4 g/dL (6.4-8.2); SODIUM 138 mmol/L (136-145); UREA NITROGEN 20 mg/dL (7-18); eGFR NON AFRICAN AMERICAN 87 mL/min (90-120)
[2020-03-12 08:16] VITALS: BP 166/93
[2020-03-12] MEDS ORDERED: PERCOCET 10-321 EAC1 PO (10:28)
[2020-03-12] MEDS ORDERED: DILAUDID2 MG PO (11:34)
[2020-03-12] MEDS ORDERED: MEDROL DOSE PACK4 MG PO (11:35)
[2020-03-12] MEDS ORDERED: CYCLOBENZAPRINE10 MG PO (11:36)
--- NOTE | 2020-03-12 11:56 | MORECARE ---
CASE MANAGEMENT DISCHARGE SUMMARY PATIENT: ALEXEY KRAMER UNIT: [id number] ADM DATE: 03/07/20 AGE: 44 : 77 SEX: M ROOM/BED: D.2229 AUTHOR: ANNA CRUZ PHYSICIAN: REFERRING PHYSICIAN: LYRIC HOOD MD DATE OF SERVICE: 03/12/20 Discharge Plan Patient Name: ALEXEY KRAMER [facility] [facility] 1975 Planned Disposition: Anticipated Discharge Date: Discharge Date: Expected LOS: Initial Reviewer: [email or web address] Initial Review Date: 03/12/2020 Generated: 03/12/20 12:55 pm Comments DCP- Discharge Planning Updated by [email or web address]: Liz Khan on 03/12/20 10:[address] Patient Name: ALEXEY KRAMER Admission Status: ER Accout number: [id number] Admission Date: 03-07-2020 : 1975 Admission Diagnosis:DORSALGIA, UNSPECIFIED Attending: SERGIO HOOD Current LOS: 5 Anticipated DC Date: Planned Disposition: Primary Insurance: [facility] Discharge Planning Comments: CM met with patient at bedside after explaining CM role and obtaining verbal consent. CM discussed availability / needs of home health, REHAB and medical equipment. PATIENT DENIES ANY DISCHARGE NEEDS. STATES HAS WALKER AT HOME IF HE NEEDS IT. PLAN FOR DC TODAY. Broker In Charge: Liz Khan Patient Name: ALEXEY KRAMER Page [phone] at 1156 All edits/amendments must be made on the electronic document DICTATION DATE: 03/12/20 1155 COUNTER HAND: MIKIE 03/12/20 1155 RPT#: [id number] DC DATE: STATUS: ADM IN [facility] [address] [place] [address] END OF REPORT
[2020-03-12 12:11] VITALS: BP 154/82
--- NOTE | 2020-03-12 13:40 | NUR ---
IV REMOVED BY DEVIN HOWARD WITH CATH TIP INTACT.
--- NOTE | 2020-03-12 13:45 | NUR ---
PATIENT RECIEVED DC INSTUCTIONS AND PRESCRIPTIONS BY DEVIN HOWARD.
--- NOTE | 2020-03-13 09:05 | MORECARE ---
CASE MANAGEMENT DISCHARGE SUMMARY PATIENT: ALEXEY KRAMER UNIT: [id number] ADM DATE: 03/07/20 AGE: 44 : 79 SEX: M ROOM/BED: D.2229 AUTHOR: ANNA CRUZ PHYSICIAN: REFERRING PHYSICIAN: LYRIC HOOD MD DATE OF SERVICE: 03/13/20 Discharge Plan Patient Name: ALEXEY KRAMER [facility] [facility] 1975 Planned Disposition: Anticipated Discharge Date: Discharge Date: 03/12/2020 Expected LOS: Initial Reviewer: [email or web address] Initial Review Date: 03/12/2020 Generated: 03/13/20 10:04 am Comments DCP- Discharge Planning Updated by [email or web address]: Liz Khan on 03/12/20 10:[address] Patient Name: ALEXEY KRAMER Admission Status: ER Accout number: [id number] Admission Date: 03-07-2020 : 1975 Admission Diagnosis:DORSALGIA, UNSPECIFIED Attending: SERGIO HOOD Current LOS: 5 Anticipated DC Date: Planned Disposition: Primary Insurance: [facility] Discharge Planning Comments: CM met with patient at bedside after explaining CM role and obtaining verbal consent. CM discussed availability / needs of home health, REHAB and medical equipment. PATIENT DENIES ANY DISCHARGE NEEDS. STATES HAS WALKER AT HOME IF HE NEEDS IT. PLAN FOR DC TODAY. Stick Puller: Liz Khan Last DP export: 03/12/20 10:56 am Patient Name: ALEXEY KRAMER Page [phone] at 0905 All edits/amendments must be made on the electronic document DICTATION DATE: 03/13/20903 END FINDER FORMING DEPARTMENT: MIKIE 03/13/20 09 RPT#: [id number] DC DATE:03/12/20 STATUS: DIS IN [facility] [address] [facility] [address] END OF REPORT
--- NOTE | 2020-03-13 10:50 | OP ---
PATIENT NAME: ALEXEY KRAMER MEDICAL RECORD: [id number] :79 LOCATION:[id number] ADMISSION DATE:03/07/20 SURGEON: LYRIC DÍAZ MD DATE OF OPERATION: 03/09/2020 PREOPERATIVE DIAGNOSES: Recurrent disc herniation at L2-L3, left; severe degenerative disc disease at L2-L3 and L3-L4; and segmental instability at L2-L3 and L3-4, left foot drop. SURGEON: Lyric Díaz MD PROCEDURE: Transforaminal lumbar interbody fusion at L2-L3 and L3-L4; lumbar laminectomy at L2-L3 and L3-L4, left with a redo discectomy L2-L3, left and foraminotomies at L2-L3 and L3-L4, left with sublaminar decompression at L2-L3 and L3-L4; pedicle screw fusion at L2, L3, L4; Zavation spine hardware; interbody cages at L2-L3 and L3-L4 with Jennifer bone stem cells. DESCRIPTION OF TECHNIQUE: After induction of general endotracheal anesthesia, the patient was rolled prone on chest and hip rolls. Lumbar spine was prepped and draped in usual sterile fashion. The L2-L3 interspace was identified with fluoroscopic x-ray and a spinal needle. A stab incision was created with a #11 blade and series of dilators were used to advance a tubular retractor at the L2-L3 interspace on the left side. The previous laminectomy was extended with Midas Dawson drill. Scar tissue was removed with Cloward rongeurs. A L2-L3 interspace was identified with fluoroscopic x-ray. The L2 and L3 nerve roots were decompressed well with those foraminotomy. The disc material was removed completely from the disc space with series of curettes and disc space geovanny. A PEEK interbody cage 10 mm in height was placed in the interspace under fluoroscopic guidance. Prior to this, cage was filled with Jennifer bone allograft as well as the disc space. Good position of the cage was confirmed on fluoroscopic x-ray. Next, attention was turned to the L3-4 interspace. After infiltration of 1:100,000 epinephrine with 1% lidocaine, a stab incision was created with #11 blade. Series of dilators was used to advance a tubular retractor to the L3-L4 interspace on the left side. Laminectomy was carried out with Midas Dwason drill and microscope. The hypertrophied ligamentum flavum was removed with Cloward rongeurs and a sublaminar decompression took place at both levels. The L3-L4 interspace was confirmed with fluoroscopic x-ray. The disc space was incised with #11 blade and the disc material was removed with the pituitary rongeurs and curettes and disc space geovanny. Bone stem cells were placed in the disc space under fluoroscopic control. A 10 x 27 mm and T-wave cage was placed in the disc space under fluoroscopic control. There was good position of the cage. The tubular retractor was removed. Jamshidi needles were used to cannulate the pedicles at L2, L3 and L4 on both sides. A 45 mm x 6.5 mm screws were placed in all 6 pedicles under fluoroscopic control over guidewires. Top loading rods were placed in the screw heads. The screw heads were tightened with nuts with a torque wrench. Good position of the rods and hardware was confirmed with fluoroscopic x-ray. Meticulous hemostasis was maintained throughout the wound. The wound was irrigated with copious amounts of Ancef irrigant solution. The fascia was closed at each incision with a #2-0 Vicryl suture, the subdermal layer was closed with 3-0 Vicryl suture. The skin was closed with piedad. A sterile dressing was applied to the wound. The patient was awakened in good condition, taken to recovery. All counts were reported as correct. Estimated blood loss was minimal. 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
== END 2020-03-12 15:34 | disposition home or self-care (01) | DRG 460 ==
LOC: D.ER 10:28 → OBSVTIME 12:06 → D.MS 12:06 → D.CVICU 03-07 08:32 → D.MS 03-07 08:32 → D.CVICU 03-09 14:41 → D.MS 03-11 12:52
PROVIDERS: Family Medicine; Neurological Surgery; ADMIT Emergency Medicine; ATTEND Emergency Medicine
PROC: 0SB20ZZ Excision of Lumbar Vertebral Disc, Open Approach (ICD-10-PCS; 2020-03-09)
PROC: 0SG10AJ Fusion of 2 or more Lumbar Vertebral Joints with Interbody Fusion Device, Posterior Approach, Anterior Column, Open Approach (ICD-10-PCS; principal; 2020-03-09 07:30)
DX: M51.26 Other intervertebral disc displacement, lumbar region (principal); I10 Essential (primary) hypertension; M48.061 Spinal stenosis, lumbar region without neurogenic claudication; M51.36 Other intervertebral disc degeneration, lumbar region; M21.372 Foot drop, left foot; K58.0 Irritable bowel syndrome with diarrhea